=== PATIENT | male | born 1985 | race Caucasian/White ===

== ENCOUNTER 2017-02-14 15:39 | Emergency (ER) | payer OTHER | END 2017-02-14 17:10 | disposition home or self-care (01) | LOC: ER1 15:39 | DX: S60.222A Contusion of left hand, initial encounter (principal); F17.210 Nicotine dependence, cigarettes, uncomplicated; Z88.2 Allergy status to sulfonamides; Z79.899 Other long term (current) drug therapy; W22.8XXA Striking against or struck by other objects, initial encounter; Y92.009 Unspecified place in unspecified non-institutional (private) residence as the place of occurrence of the external cause | CPT/HCPCS: 73130; 99283 ==

== ENCOUNTER 2017-03-08 12:00 | Emergency (ER) | payer OTHER | END 2017-03-08 13:12 | disposition home or self-care (01) | LOC: ER1 12:00 | DX: K04.7 Periapical abscess without sinus (principal); F17.210 Nicotine dependence, cigarettes, uncomplicated; B19.20 Unspecified viral hepatitis C without hepatic coma; Z88.1 Allergy status to other antibiotic agents | CPT/HCPCS: 99282 ==

== ENCOUNTER 2017-03-09 06:57 | Emergency (ER) | payer OTHER | END 2017-03-09 08:02 | disposition home or self-care (01) | LOC: ER1 06:57 | DX: K04.7 Periapical abscess without sinus (principal); F17.210 Nicotine dependence, cigarettes, uncomplicated; Z88.2 Allergy status to sulfonamides | CPT/HCPCS: 96372; 99282 ==